=== PATIENT | male | born 1985 | race Caucasian/White ===

== ENCOUNTER 2019-07-17 12:51 | Emergency (ER) | payer SELFPAY ==
[~2019-07-17] VITALS: Ht 175.3 cm; Wt 62.0 kg
[2019-07-17 16:40] VITALS: BP 166/70
[2019-07-17] MEDS ORDERED: ACETAMINOPHEN WITH CODEINE 300/30MG TABLET PO ONE (16:45)
== END 2019-07-17 18:02 | disposition left against medical advice (07) ==
LOC: ER 12:51
DX: S00.83XA Contusion of other part of head, initial encounter (principal); Y08.89XA Assault by other specified means, initial encounter; Y93.89 Activity, other specified; Y92.89 Other specified places as the place of occurrence of the external cause; Y99.8 Other external cause status
CPT/HCPCS: 99283